=== PATIENT | male | born 1965 ===

== ENCOUNTER 2025-05-03 06:00 | Day surgery (SDC) | payer OTHER ==
[~2025-05-03 06:00] MED LIST: LOSARTAN POTASS25 MG PO
[2025-05-03] MEDS ORDERED: CEFTRIAXONE SODIUM 2,000 MG VIAL ONE (06:59)
[2025-05-03] MEDS ORDERED: METRONIDAZOLE/SODIUM CHLORIDE 500 MG/100 ML PIGGYBACK IV ONE (06:59)
[2025-05-03] MEDS ORDERED: POVIDONE-IODINE 118 ML BOTT TOP ONE (07:21)
[2025-05-03] MEDS ORDERED: HEMOSTATIC MATRIX 1 KIT KIT TOP ONE (07:21)
[2025-05-03] MEDS ORDERED: BUPIVACAINE HCL/MPF 0.5% 30ML VIAL ONE (07:21)
[2025-05-03] MEDS ORDERED: LIDOCAINE HCL 1%/EPINEPHRINE 20ML VIAL IJ ONE (07:21)
[2025-05-03] MEDS ORDERED: DIBUCAINE 30 GM TUBE ONE (07:21)
[2025-05-03] MEDS ORDERED: HYDROGEN PEROXIDE 473 ML BOTTLE TOP ONE (07:34)
[2025-05-03] MEDS ORDERED: TRAM1TAB98 PO (08:59)
[2025-05-03] MEDS ORDERED: COLACE100 MG PO (08:59)
[2025-05-03] MEDS ORDERED: NEURONTIN300 MG PO (08:59)
== END 2025-05-03 13:22 | disposition home or self-care (01) ==
LOC: CIR.AMB 06:00
PROVIDERS: ATTEND Surgery
DX: C21.0 Malignant neoplasm of anus, unspecified (principal); K62.6 Ulcer of anus and rectum; K62.89 Other specified diseases of anus and rectum

== ENCOUNTER 2025-05-24 10:00 | Day surgery (SDC) | payer OTHER ==
[2025-05-20 12:07] VITALS: BP 113/81
[~2025-05-24] VITALS: Ht 176.5 cm; Wt 81.2 kg
[~2025-05-24 10:00] MED LIST changes: +COLACE100 MG PO; +NEURONTIN300 MG PO; +TRAM1TAB98 PO
[2025-05-24] MEDS ORDERED: CEFAZOLIN SODIUM 1,000 MG VIAL ONE (11:35)
[2025-05-24] MEDS ORDERED: BUPIVACAINE HCL/MPF 0.5% 30ML VIAL ONE (12:22)
[2025-05-24] MEDS ORDERED: HEPARIN SODIUM,PORCINE/PF 100 UNIT/ML SYRINGE IV ONE (12:23)
[2025-05-24] MEDS ORDERED: TRAM1TAB98 PO (12:43)
== END 2025-05-24 16:10 | disposition home or self-care (01) ==
LOC: CIR.AMB 10:00
PROVIDERS: ATTEND Surgery
DX: C21.0 Malignant neoplasm of anus, unspecified (principal); K60.1 Chronic anal fissure; K62.5 Hemorrhage of anus and rectum; K62.89 Other specified diseases of anus and rectum; D12.9 Benign neoplasm of anus and anal canal
CPT/HCPCS: 36561; C1751